=== PATIENT | male | born 1955 | race Two or more races ===

== ENCOUNTER 2024-10-08 16:49 | Inpatient (IN) | payer MEDICARE, OTHER ==
[2024-10-08] VITALS (17 sets, daily range): BP systolic 77–180; BP diastolic 58–101; TEMP 97.6; O2SAT 97–100
[~2024-10-08] VITALS: Ht 172.7 cm; Wt 82.2 kg
[2024-10-08] MEDS: NALOXONE NASAL SPRAY 4 MG SPRAY NS ONE (16:57)
[2024-10-08] MEDS ORDERED: NALOXONE 2 MG/2 ML SYRINGE ONE (17:01)
[2024-10-08] MEDS: NALOXONE HCL 0.4 MG/ML AMPUL IV ONE (17:04)
[2024-10-08] MEDS: ETOMIDATE 20 MG/10 ML VIAL IV ONE (17:14)
[2024-10-08] MEDS: SUCCINYLCHOLINE CHLORIDE 200 MG/10 ML VIAL IV ONE (17:15)
[2024-10-08] MEDS ORDERED: DIAZ10TA PO (17:19)
[2024-10-08] MEDS ORDERED: HYDR-3980 PO (17:19)
[2024-10-08] MEDS ORDERED: PROPOFOL 100 ML ONE (17:27)
[2024-10-08] MEDS: PROPOFOL 100 ML IV PRN (17:36)
[2024-10-08 17:38] LABS: PLATELET COUNT (AUTO) 204 K/uL (152-348); RED BLOOD CELL COUNT(AUTO) 4.76 MIL/uL (4.06-5.63); RED CELL DISTRIBUTION WIDTH 13.6 % (12.1-16.2); WHITE BLOOD COUNT (AUTO) 8.7 K/uL (3.6-10.2)
[2024-10-08 17:40] LABS: *BILIRUBIN,URIN NEGATIVE (NEGATIVE); *BLOOD, URINE NEGATIVE (NEGATIVE); *CLARITY,URINE CLEAR (CLEAR); *COLOR,URINE YELLOW (YELLOW); *KETONES,URINE NEGATIVE (NEGATIVE); *PROTEIN,URINE NEGATIVE (NEGATIVE); *UROBILINOGEN,URINE 0.2 E.U./dl (NORMAL); LEUKOCYTE ESTERASE ,URINE NEGATIVE (NEGATIVE); NITRITE, URINE NEGATIVE (NEGATIVE); UGLUCOSE NEGATIVE (NEGATIVE)
[2024-10-08 17:48] LABS: CREATININE 1.4 mg/dL (0.6-1.3); SODIUM SERUM 147 mmol/L (136-145); UREA NITROGEN, BLOOD 16 mg/dL (7-18)
[2024-10-08 17:51] LABS: ETHANOL 230.0 MG/DL (0-10)
[2024-10-08 17:53] LABS: *AMPHETAMINE, URINE NEGATIVE (NEGATIVE); *BARBITURATE, URINE NEGATIVE (NEGATIVE); *BENZODIAZEPINE, URINE POSITIVE (NEGATIVE); *CANNABINOID, URINE POSITIVE (NEGATIVE); *COCCAINE, URINE NEGATIVE (NEGATIVE); *OPIATE, URINE POSITIVE (NEGATIVE); *PHENCYCLIDINE SCREEN,URINE NEGATIVE (NEGATIVE); FENTANYL, URINE NEGATIVE (NEGATIVE)
[2024-10-08 17:54] LABS: ASPARTATE AMINOTRANSFERASE 11 U/L (15-37); TOTAL PROTEIN, SERUM 7.2 g/dL (6.4-8.2)
[2024-10-08] MEDS ORDERED: REMEDY ESSENTIAL ZINC PASTE 113 GM TP PRN (18:15)
[2024-10-08] MEDS ORDERED: ACETAMINOPHEN 325 MG TABLET PO PRN (18:15)
[2024-10-08] MEDS ORDERED: ONDANSETRON 4 MG/2 ML VIAL IV PRN (18:15)
[2024-10-08] MEDS ORDERED: MAGNESIUM HYDROXIDE 30 ML LIQUID UDC PO PRN (18:15)
[2024-10-08 18:23] LABS: ABG BASE EXCESS -4.1 mmol/L (-2.0-3.0); ABG HCO3 19.3 mmol/L (21.0-28.0); ABG PCO2 30.9 mmHg (35.0-48.0); ABG PH 7.414 (7.350-7.450); ABG PO2 > 500.9 mmHg (83.0-108.0); ABG SITE LEFT RADIAL; ABG TOTAL HEMOGLOBIN 14.4 G/dL (13.5-17.5); AaDO2 99.9 mmHg; FIO2 100.0 %; SET RATE, BG 20.0; VT, ABG 500 mL
[2024-10-08] MEDS: IV D5 1/2 NS 1000 ML 1,000 ML IV PRN (18:54)
[2024-10-08] MEDS: NOREPINEPHRINE 8MG/NS 250ML 250 ML IV PRN (22:14)
[2024-10-09] VITALS (97 sets, daily range): BP systolic 74–209; BP diastolic 47–99; TEMP 97.5–98.7; O2SAT 94–100
[2024-10-09 05:15] LABS: PLATELET COUNT (AUTO) 164 K/uL (152-348); RED BLOOD CELL COUNT(AUTO) 4.56 MIL/uL (4.06-5.63); RED CELL DISTRIBUTION WIDTH 14.0 % (12.1-16.2); WHITE BLOOD COUNT (AUTO) 8.5 K/uL (3.6-10.2)
[2024-10-09 05:19] LABS: NEUTROPHILS % (MANUAL) 0 % (42-75)
[2024-10-09 05:24] LABS: CREATININE 0.8 mg/dL (0.6-1.3); SODIUM SERUM 143.0 mmol/L (136-145); UREA NITROGEN, BLOOD 17.0 mg/dL (7-18)
[2024-10-09] MEDS: PROPOFOL 100 ML IV PRN (07:56)
[2024-10-09] MEDS: POTASSIUM CHLORIDE 50 ML IV SCH (08:00)
[2024-10-09] MEDS: PANTOPRAZOLE SODIUM 40 MG VIAL IV SCH (08:01)
[2024-10-09 09:21] LABS: ABG BASE EXCESS -0.6 mmol/L (-2.0-3.0); ABG HCO3 23.2 mmol/L (21.0-28.0); ABG PCO2 35.5 mmHg (35.0-48.0); ABG PH 7.433 (7.350-7.450); ABG PO2 89.3 mmHg (83.0-108.0); ABG SITE LEFT RADIAL; ABG TOTAL HEMOGLOBIN 14.0 G/dL (13.5-17.5); AaDO2 97.1 mmHg; FIO2 30.0 %; PEEP,BG 5.0 cmH20; SET RATE, BG 16.0; VT, ABG 500 mL
[2024-10-09] MEDS: FENTANYL CITRATE/PF 1,000 MCG in IV NORMAL SALINE 80 ML IV PRN (11:12)
[2024-10-09] MEDS ORDERED: SUCCINYLCHOLINE CHLORIDE 200 MG/10 ML VIAL ONE (18:00)
[2024-10-09] MEDS ORDERED: ETOMIDATE 20 MG/10 ML VIAL ONE (18:00)
[2024-10-09] MEDS: PRECEDEX 400 MCG/100 ML BOTTLE 100 ML IV PRN (21:15)
[2024-10-10] VITALS (71 sets, daily range): BP systolic 89–220; BP diastolic 61–192; TEMP 97.7–97.8; O2SAT 96–100
[2024-10-10 05:05] LABS: PLATELET COUNT (AUTO) 141 K/uL (152-348); RED BLOOD CELL COUNT(AUTO) 4.28 MIL/uL (4.06-5.63); RED CELL DISTRIBUTION WIDTH 13.7 % (12.1-16.2); WHITE BLOOD COUNT (AUTO) 9.1 K/uL (3.6-10.2)
[2024-10-10 05:17] LABS: CREATININE 0.6 mg/dL (0.6-1.3); SODIUM SERUM 142 mmol/L (136-145); UREA NITROGEN, BLOOD 8 mg/dL (7-18)
[2024-10-10 08:51] LABS: ABG BASE EXCESS -2.2 mmol/L (-2.0-3.0); ABG HCO3 22.8 mmol/L (21.0-28.0); ABG PCO2 40.1 mmHg (35.0-48.0); ABG PH 7.373 (7.350-7.450); ABG PO2 101.0 mmHg (83.0-108.0); ABG SITE RIGHT RADIAL; ABG TOTAL HEMOGLOBIN 13.1 G/dL (13.5-17.5); AaDO2 97.5 mmHg; FIO2 30.0 %; PEEP,BG 5.0 cmH20; SET RATE, BG 0.0
[2024-10-10] MEDS: ENOXAPARIN SODIUM 40 MG/0.4 ML DISP.SYRIN SQ SCH (09:30)
[2024-10-10] MEDS ORDERED: SODIUM PHOSPHATE MM 15 MMOL in IV NORMAL SALINE 250 ML IV ONE (14:00)
== END 2024-10-10 11:15 | disposition left against medical advice (07) | DRG 917 ==
LOC: ER 16:49 → CCU 20:01
PROVIDERS: ADMIT Student in an Organized Health Care Education/Training Program; ATTEND Student in an Organized Health Care Education/Training Program
PROC: 5A1945Z Respiratory Ventilation, 24-96 Consecutive Hours (ICD-10-PCS; principal; 2024-10-08)
PROC: 0BH17EZ Insertion of Endotracheal Airway into Trachea, Via Natural or Artificial Opening (ICD-10-PCS; 2024-10-08)
PROC: 05HB33Z Insertion of Infusion Device into Right Basilic Vein, Percutaneous Approach (ICD-10-PCS; 2024-10-09)
DX: T40.2X1A Poisoning by other opioids, accidental (unintentional), initial encounter (principal); G92.8 Other toxic encephalopathy; J96.01 Acute respiratory failure with hypoxia; N17.0 Acute kidney failure with tubular necrosis; E87.0 Hyperosmolality and hypernatremia; T42.4X1A Poisoning by benzodiazepines, accidental (unintentional), initial encounter; T51.0X1A Toxic effect of ethanol, accidental (unintentional), initial encounter; F11.10 Opioid abuse, uncomplicated; F13.10 Sedative, hypnotic or anxiolytic abuse, uncomplicated; F10.10 Alcohol abuse, uncomplicated; Y92.521 Bus station as the place of occurrence of the external cause; E87.6 Hypokalemia; Y90.7 Blood alcohol level of 200-239 mg/100 ml; Z53.29 Procedure and treatment not carried out because of patient's decision for other reasons
CPT/HCPCS: 36415; 36600; 70030-TC; 70450; 71045; 72125; 82803; 83735; 84100; 84443; 84484; 85025; 85730; 93307; 94002; 94003; 94760; A4606; A4663; G0378; G0480; J0330; J1650; J2312; J2470; J3010; J3480; J3490